=== PATIENT | male | born 1950 | race Hispanic/Latino ===

== ENCOUNTER 2017-11-28 15:30 | Emergency (ER) | payer OTHER, SELFPAY ==
--- NOTE | 2017-11-28 17:29 | EDPHYS ---
Physician Documentation [facility] Name: Home Matthew Age: 67 yrs Sex: Male : 1950 Arrival Date: 11/28/2017 Time: 15:32 Bed Treatment Private MD: Raoul Hall E; Bonnen, James ED Physician Quang Brower HPI: 11/28 17:26 This 67 yrs old Male presents to ER via Wheelchair with complaints of snw Parkinson's Tremors. 17:26 pt is concerned that his tremor was getting too severe. The battery of his stimulator snw is being replaced on . . Onset: The symptoms/episode began/occurred suddenly, just prior to arrival. Severity of symptoms: At their worst the symptoms were moderate severe in the emergency department the symptoms have improved moderately. The patient has experienced similar episodes in the past. The patient has not recently seen a physician. stimulator battery needs replacement. Historical: - Allergies: 15:53 NKDA; hb - Home Meds: 15:53 pramipexole Oral [Active]; hb - PMHx: 15:53 Parkinsons; Prostitis; hb - PSHx: 15:53 Brain stimulator; hb - Immunization history:: Adult Immunizations up to date. - Social history:: Smoking status: Patient/guardian denies using tobacco. - Ebola Screening: : No symptoms or risks identified at this time. ROS: 17:21 Constitutional: Negative for fever, chills, and weight loss, Eyes: Negative for injury, snw pain, redness, and discharge, ENT: Negative for injury, pain, and discharge, Neck: Negative for injury, pain, and swelling, Cardiovascular: Negative for chest pain, palpitations, and edema, Respiratory: Negative for shortness of breath, cough, wheezing, and pleuritic chest pain, Abdomen/GI: Negative for abdominal pain, nausea, vomiting, diarrhea, and constipation, Back: Negative for injury and pain, : Negative for injury, bleeding, discharge, and swelling, MS/Extremity: Negative for injury and deformity, Skin: Negative for injury, rash, and discoloration. 17:21 Neuro: Positive for tremor, pt states his brain stimulator battery is . It is being replaced on . per Dr. Del Castillo. Pt takes his Parkinson's meds but the tremor was severe earlier today. Pt now states he just wants to go home and he will see Dr. Del Castillo on .. Exam: 17:21 Constitutional: This is a well developed, well nourished patient who is awake, alert, snw and in no acute distress. Head/Face: Normocephalic, atraumatic. Eyes: Pupils equal round and reactive to light, extra-ocular motions intact. Lids and lashes normal. Conjunctiva and sclera are non-icteric and not injected. Cornea within normal limits. Periorbital areas with no swelling, redness, or edema. ENT: Nares patent. No nasal discharge, no septal abnormalities noted. Tympanic membranes are normal and external auditory canals are clear. Oropharynx with no redness, swelling, or masses, exudates, or evidence of obstruction, uvula midline. Mucous membranes moist. Neck: Trachea midline, no thyromegaly or masses palpated, and no cervical lymphadenopathy. Supple, full range of motion without nuchal rigidity, or vertebral point tenderness. No Meningismus. Chest/axilla: Normal chest wall appearance and motion. Nontender with no deformity. No lesions are appreciated. Cardiovascular: Regular rate and rhythm with a normal S1 and S2. No gallops, murmurs, or rubs. Normal PMI, no JVD. No pulse deficits. Respiratory: Lungs have equal breath sounds bilaterally, clear to auscultation and percussion. No rales, rhonchi or wheezes noted. No increased work of breathing, no retractions or nasal flaring. Abdomen/GI: Soft, non-tender, with normal bowel sounds. No distension or tympany. No guarding or rebound. No evidence of tenderness throughout. Back: No spinal tenderness. No costovertebral tenderness. Full range of motion. Skin: Warm, dry with normal turgor. Normal color with no rashes, no lesions, and no evidence of cellulitis. MS/ Extremity: Pulses equal, no cyanosis. Neurovascular intact. Full, normal range of motion. 17:21 Neuro: Orientation: is normal, Mentation: is normal, Memory: is normal, Cerebellar function: parkinsonian tremor. pt states it was significantly worse earlier today. . Vital Signs: 15:52 BP 168 / 88; Pulse 74; Resp 16; Temp 97.7; Pulse Ox 100% on R/A; Weight 78.02 kg; hb Height 5 ft. 7 in. (170.18 cm); Pain 8/10; 15:52 Body Mass Index 26.94 (78.02 kg, 170.18 cm) hb [facility]: 17:03 Patient medically screened. [facility] 17:28 Data reviewed: vital signs, nurses notes. Data interpreted: Pulse oximetry: on room air snw is 100 %. Interpretation: normal. Counseling: I had a detailed discussion with the patient and/or guardian regarding: the historical points, exam findings, and any diagnostic results supporting the discharge/admit diagnosis, the presence of at least one elevated blood pressure reading (>120/80) during this emergency department visit, the need for outpatient follow up, to return to the emergency department if symptoms worsen or persist or if there are any questions or concerns that arise at home. Special discussion: Based on the history and exam findings, there is no indication for further emergent testing or inpatient evaluation. I discussed with the patient/guardian the need to see the neurologist for further evaluation of the symptoms. I discussed with the patient/guardian the need to see the primary care provider for further evaluation of the symptoms. Dr. Del Castillo. Administered Medications: No medications were administered Disposition: 11/29 09:44 Co-signature as Attending Physician, Quang Brower MD I agree with the assessment and [facility] plan of care. Disposition: 11/28/17 17:28 Discharged to Home. Impression: Encounter for screening, unspecified. - Condition is Stable. - Medication Reconciliation Form, Thank You Letter, Antibiotic Education, Prescription Opioid Use form. - Follow up: Flex Del Castillo MD; When: 1 - 2 days; Reason: Recheck today's complaints, Continuance of care, Re-evaluation by your physician. Signatures: Quang Brower MD MD cha Therrien, Shelly, YOUTH SERVICES LIBRARIAN-C YOUTH SERVICES LIBRARIAN-Csnw Angelica Mcintyre, MARIA DEL ROSARIO RN ss Steph Reinoso RN RN Corrections: (The following items were deleted from the chart) 11/28 17:31 17:28 11/28/2017 17:28 Discharged to Home. Impression: Encounter for screening, ss unspecified. Condition is Stable. Forms are Medication Reconciliation Form, Thank You Letter, Antibiotic Education, Prescription Opioid Use. Follow up: Flex Del Castillo; When: 1 - 2 days; Reason: Recheck today's complaints, Continuance of care, Re-evaluation by your physician. snw
--- NOTE | 2017-11-28 17:29 | ER ---
Nurse's Notes [facility] Name: Home Matthew Age: 67 yrs Sex: Male : 1950 Arrival Date: 11/28/2017 Time: 15:32 Bed Treatment Private MD: Raoul Hall E; Flex Del Castillo Diagnosis: Encounter for screening, unspecified Presentation: 11/28 15:47 Presenting complaint: Patient states: Worsening tremors and bilateral upper extremity hb pain x 5 days. Hx Parkinson's. Brain stimulator battery is , surgery scheduled for . Transition of care: patient was not received from another setting of care. Onset of symptoms was November 28, 2017. Risk Assessment: Do you want to hurt yourself or someone else? Patient reports no desire to harm self or others. Initial Sepsis Screen: Does the patient meet any 2 criteria? No. Patient's initial sepsis screen is negative. Does the patient have a suspected source of infection? No. Patient's initial sepsis screen is negative. Care prior to arrival: None. 15:47 Method Of Arrival: Wheelchair hb 15:47 Acuity: TERESA 4 hb Historical: - Allergies: 15:53 NKDA; hb - Home Meds: 15:53 pramipexole Oral [Active]; hb - PMHx: 15:53 Parkinsons; Prostitis; hb - PSHx: 15:53 Brain stimulator; hb - Immunization history:: Adult Immunizations up to date. - Social history:: Smoking status: Patient/guardian denies using tobacco. - Ebola Screening: : No symptoms or risks identified at this time. Screenin:58 Abuse screen: Denies threats or abuse. Denies injuries from another. Nutritional sv screening: No deficits noted. Tuberculosis screening: Never had TB. Fall Risk No fall in past 12 months (0 pts). Secondary diagnosis (15 points) impaired mobility, parkinsons. No IV (0 pts). Ambulatory Aid- None/Bed Rest/Nurse Assist (0 pts). Gait- Impaired (20 pts.). Mental Status- Oriented to own ability (0 pts). Assessment: 16:45 General: Appears in no apparent distress. Behavior is calm, cooperative. General: Pt sv reports that his battery needs to be replaced on his stimulator which Dr. Del Castillo has scheduled for this . . Pain: Denies pain. Neuro: Level of Consciousness is awake, alert, obeys commands, Oriented to person, place, time, situation, tremors noted to bilateral upper extremities. More prominent to R upper extremity. . Respiratory: Airway is patent Respiratory effort is even, unlabored, Respiratory pattern is regular, symmetrical. Derm: Skin is intact, is healthy with good turgor, Skin is pink, warm \T\ dry. normal. 16:58 Reassessment: Betsy Duran NP at bedside. Pt is eager to leave because he reports sv that his tremors have improved much since arrival to ER and wants to just follow up as planned to replace battery. Decision to medical screen. Vital Signs: 15:52 BP 168 / 88; Pulse 74; Resp 16; Temp 97.7; Pulse Ox 100% on R/A; Weight 78.02 kg; hb Height 5 ft. 7 in. (170.18 cm); Pain 8/10; 15:52 Body Mass Index 26.94 (78.02 kg, 170.18 cm) hb ED Course: 15:32 Patient arrived in ED. sb2 15:32 Raoul Hall MD is Private Physician. sb2 15:33 Flex Del Castillo MD is Private Physician. sb2 15:52 Triage completed. hb 15:52 Arm band placed on left wrist. hb 16:50 Patient has correct armband on for positive identification. Call light in reach. sv 17:00 Nino West NP is PHCP. pm1 17:00 Quang Brower MD is Attending Physician. pm1 17:00 No provider procedures requiring assistance completed. Patient did not have IV access sv during this emergency room visit. 17:03 Betsy Duran FNP-C is PHCP. snw 17:03 Quang Brower MD is Attending Physician. snw 17:05 Angelica Mcintyre, MARIA DEL ROSARIO is Primary Nurse. ss 17:27 Flex Del Castillo MD is Referral Physician. snw Administered Medications: No medications were administered Outcome: 17:00 Medical screen evaluation completed per provider. Patient declined treatment. sv 17:00 Condition: good 17:00 Instructed on follow up and referral plans. Demonstrated understanding of follow-up care. 17:28 Discharge ordered by . snw 17:31 Patient left the ED. ss Signatures: Kelli Dejesus RN RN sv Betsy Duran, SKIN DIVING TEACHER-C SKIN DIVING TEACHER-Csnw Angelica Mcintyre, RN RN ss Nino West, DRY HEAT CABINET ATTENDANT DRY HEAT CABINET ATTENDANT pm1 Steph Reinoso RN RN Hoa Bryant sb2
[2017-11-28 18:48] VITALS: BP 168/88; TEMP 97.7; O2SAT 100
== END 2017-11-28 17:31 | disposition home or self-care (01) ==
LOC: ER 15:30
DX: G20 Parkinson's disease (principal)
CPT/HCPCS: 99281

== ENCOUNTER 2020-03-26 09:08 | Emergency (ER) | payer OTHER, SELFPAY ==
--- OUTSIDE RECORDS SUMMARY | 2020-03-26 09:32 | XMS REPORT ---
:1950 Author Organization [employer] Care Team Providers Name Role Phone Etta Josefina Provider Role Unavailable Allergies, Adverse Reactions, Alerts Substance Reaction Event Type N.K.D.A. Info Not Available Non Drug Allergy Problems Problem Type Condition Code Onset Dates Condition Statu s Assessment Urinary retention R33.9 Active Assessment Establishing care with new doctor, Z71.89 Active encounter for Medications Medication Code Code Instructions Start End Status Dosage System Date Date Vitamin D [facility] 20332829958 50 MCG (2000 Active 1 tab let UT) Orally Once a day Vitamin E [facility] 54291577312 100 UNIT Orally Active 1 capsule Once a day Carbidopa [facility] 17960856026 25 MG Orally Active 1 tab let Three times a day Pramipexole [facility] 54631154774 0.125 MG Orally Active 1 tablet Dihydrochloride Once a day Cephalexin ND 63769653597 250 MG Orally Active 1 c apsule every 6 hrs Results No Known Results Summary Purpose eClinical[employer] Submission
--- OUTSIDE RECORDS SUMMARY | 2020-03-26 09:32 | XMS REPORT | Continuity of Care Document ---
:1950 Author Organization [facility] t Address [address] [place] [address] Care Team Providers Name Role Phone Unavailable Unavailable Unavailable Problems Condition Condition Condition Status Onset Resolution Last Treating Co mments Source Name Details Category Date Date Treatment Clinician Date Urinary Urinary Diagnosis [facility] Establishi Establishi Diagnosis [facility] with new with new [facility] doctor, doctor, l encounter encounter Outp ati for for ent Clinics Allergies, Adverse Reactions, Alerts This patient has no known allergies or adverse reactions. Medications Ordered Filled Start Stop Current Ordering Indication Dosage Frequency Signature Comments Components Source Medication Medication Date Date Medication? Clinician (SIG) Name Name Vitamin D Vitamin D Yes Josefina [address] [facility] Vitamin E Vitamin E Yes Josefina [address] [facility] Carbidopa Carbidopa Yes Josefina [address] [facility] Pramipexole Pramipexole Yes Josefina [address] [facility] Dihydrochlo Dihydrochlo [facility] Cephalexin Cephalexin Yes Josefina [address] [facility] Procedures This patient has no known procedures. Encounters Start End Encounter Admission Attending Care Care Encounter Source Date/Time Date/Time Type Type Clinicians Facility Department ID 2020-01-07 2020-01-07 Outpatient [facility] [id number] [facility] 10:00:00 10:00:00 t Specialty/U [facility] - Specialty rology [facility]Urology Clinic l Clinic Outpati ent Clinics Results This patient has no known results.
[2020-03-26 10:31] LABS: Urine Blood TRACE (NEG); Urine Glucose NEGATIVE (NEG); Urine Protein 1+ (NEG); Urine Specific Gravity 1.025 (1.005-1.030)
--- NOTE | 2020-03-26 10:35 | ER ---
Nurse's Notes [facility] Name: Home Andrew Age: 69 yrs Sex: Male : 1950 Arrival Date: 03/26/2020 Time: 09:10 Bed 3 Private MD: Diagnosis: Urinary tract infection, site not specified Presentation: 03/26 09:20 Chief complaint: Patient states: pain to right leg X 3 days, states last time he had iw pain like this he had a urine infection, self caths at home and has had increase in frequency. Coronavirus screen: At this time, the client does not indicate any symptoms associated with coronavirus-19. Ebola Screen: Patient negative for fever greater than or equal to 101.5 degrees Fahrenheit, and additional compatible Ebola Virus Disease symptoms Patient denies exposure to infectious person. Patient denies travel to an Ebola-affected area in the 21 days before illness onset. No symptoms or risks identified at this time. Initial Sepsis Screen: Does the patient meet any 2 criteria? No. Patient's initial sepsis screen is negative. Does the patient have a suspected source of infection?. Risk Assessment: Do you want to hurt yourself or someone else? Patient reports no desire to harm self or others. Onset of symptoms was March 23, 2020. 09:20 Method Of Arrival: Wheelchair iw 09:20 Acuity: TERESA 3 iw Historical: - Allergies: 09:22 NKDA; iw - PMHx: 09:22 Parkinsons; Prostitis; iw - PSHx: 09:22 Brain stimulator; iw - Immunization history:: Adult Immunizations not up to date. - Social history:: Smoking status: Patient denies any tobacco usage or history of. Screenin:00 Abuse screen: Denies threats or abuse. Denies injuries from another. Nutritional jl7 screening: No deficits noted. Tuberculosis screening: No symptoms or risk factors identified. Fall Risk Ambulatory Aid- Crutches/Cane/Walker (15 pts). Mental Status- Total Cazares Fall Scale indicates No Risk (0-24 pts). Assessment: 10:00 General: Appears in no apparent distress. uncomfortable, Behavior is calm, cooperative, jl7 appropriate for age. Pain: Complains of pain in right leg and left leg Pain currently is 8 out of 10 on a pain scale. Neuro: Level of Consciousness is awake, alert, obeys commands. Cardiovascular: Patient's skin is warm and dry. Respiratory: Airway is patent Respiratory effort is even, unlabored, Respiratory pattern is regular, symmetrical. Derm: Skin is pink, warm \T\ dry. 11:00 Reassessment: Patient appears in no apparent distress at this time. No changes from jl7 previously documented assessment. Patient and/or family updated on plan of care and expected duration. Pain level reassessed. Patient is alert, oriented x 3, equal unlabored respirations, skin warm/dry/pink. Vital Signs: 09:20 BP 143 / 71; Pulse 95; Resp 16 S; Temp 98.7; Pulse Ox 97% on R/A; Weight 78.93 kg; iw Height 5 ft. 6 in. (167.64 cm); Pain 8/10; 11:15 BP 135 / 72; Pulse 80; Resp 17; Pulse Ox 96% ; jl7 09:20 Body Mass Index 28.08 (78.93 kg, 167.64 cm) iw ED Course: 09:10 Patient arrived in ED. as 09:22 Triage completed. iw 09:22 Arm band placed on. iw 09:37 Blanca Briceño FNP-C is PHCP. kb 09:37 Hermann Napoles MD is Attending Physician. kb 09:57 Luis Tompkins, MARIA DEL ROSARIO is Primary Nurse. jl7 10:00 Patient has correct armband on for positive identification. Placed in gown. Bed in low jl7 position. Call light in reach. Side rails up X 1. Pulse ox on. NIBP on. Warm blanket given. 11:32 No provider procedures requiring assistance completed. Patient did not have IV access jl7 during this emergency room visit. Administered Medications: 11:08 Drug: Rocephin (cefTRIAXone) 1 grams Route: IM; Site: left vastus lateralis; tw2 11:31 Follow up: Response: No adverse reaction jl7 Outcome: 10:35 Discharge ordered by . kb 11:32 Discharged to home ambulatory, with family. jl7 11:32 Condition: stable 11:32 Discharge instructions given to patient, family, Instructed on discharge instructions, follow up and referral plans. medication usage, Demonstrated understanding of instructions, follow-up care, medications, Prescriptions given X 1. 11:33 Patient left the ED. jl7 Addendum: 03/29/2020 13:59 Addendum: Culture Results: Positive urine culture. Bacteria is resistant to, has s v intermediate sensitivity, or is not tested against prescribed antibiotics. Report given to KEVIN for further evaluation and then to brush clearing laborer for follow up with patient. Phone call Attempt #1 Marely informed pt over the phone in [place] Prescription called-in to pharmacy of choice. Ekaterina Portillo. Signatures: Blanca Briceño, DRILLING ENGINEER-C DRILLING ENGINEER-Kelli Dolan, RN RN Katharina Perez Irene, RN RN iw Lilly Castillo, RN RN tw2 Luis Tompkins, RN RN jl7
--- NOTE | 2020-03-26 10:36 | EDPHYS ---
Physician Documentation [facility] Name: Home Andrew Age: 69 yrs Sex: Male : 1950 Arrival Date: 03/26/2020 Time: 09:10 Bed 3 Private MD: ED Physician Hermann Napoles HPI: 03/26 10:29 This 69 yrs old Male presents to ER via Wheelchair with complaints of Leg Pain.kb 10:29 The patient presents with urinary symptoms, urinary frequency. Onset: The kb symptoms/episode began/occurred yesterday. Modifying factors: The symptoms are alleviated by nothing, the symptoms are aggravated by nothing. Associated signs and symptoms: The patient has no apparent associated signs or symptoms. Severity of symptoms: At their worst the symptoms were moderate, in the emergency department the symptoms are unchanged. The patient has experienced similar episodes in the past. The patient has not recently seen a physician. Pt reports urinary frequency and bilateral leg achiness. States he normally has the leg pain when he has a UTI. . Historical: - Allergies: 09:22 NKDA; iw - PMHx: 09:22 Parkinsons; Prostitis; iw - PSHx: 09:22 Brain stimulator; iw - Immunization history:: Adult Immunizations not up to date. - Social history:: Smoking status: Patient denies any tobacco usage or history of. ROS: 10:28 Constitutional: Negative for fever, chills, and weight loss, Cardiovascular: Negative kb for chest pain, palpitations, and edema, Respiratory: Negative for shortness of breath, cough, wheezing, and pleuritic chest pain, Abdomen/GI: Negative for abdominal pain, nausea, vomiting, diarrhea, and constipation, Back: Negative for injury and pain, Skin: Negative for injury, rash, and discoloration, Neuro: Negative for headache, weakness, numbness, tingling, and seizure. 10:28 : Positive for urinary symptoms, urinary frequency. 10:28 MS/extremity: Positive for bilateral leg pain. Exam: 10:29 Constitutional: This is a well developed, well nourished patient who is awake, alert, kb and in no acute distress. Head/Face: Normocephalic, atraumatic. Chest/axilla: Normal chest wall appearance and motion. Nontender with no deformity. No lesions are appreciated. Cardiovascular: Regular rate and rhythm with a normal S1 and S2. No gallops, murmurs, or rubs. Normal PMI, no JVD. No pulse deficits. Respiratory: Lungs have equal breath sounds bilaterally, clear to auscultation and percussion. No rales, rhonchi or wheezes noted. No increased work of breathing, no retractions or nasal flaring. Abdomen/GI: Soft, non-tender, with normal bowel sounds. No distension or tympany. No guarding or rebound. No evidence of tenderness throughout. Skin: Warm, dry with normal turgor. Normal color with no rashes, no lesions, and no evidence of cellulitis. MS/ Extremity: Pulses equal, no cyanosis. Neurovascular intact. Full, normal range of motion. Neuro: Awake and alert, GCS 15, oriented to person, place, time, and situation. Cranial nerves II-XII grossly intact. Motor strength 5/5 in all extremities. Sensory grossly intact. Cerebellar exam normal. Normal gait. Vital Signs: 09:20 BP 143 / 71; Pulse 95; Resp 16 S; Temp 98.7; Pulse Ox 97% on R/A; Weight 78.93 kg; iw Height 5 ft. 6 in. (167.64 cm); Pain 8/10; 11:15 BP 135 / 72; Pulse 80; Resp 17; Pulse Ox 96% ; jl7 09:20 Body Mass Index 28.08 (78.93 kg, 167.64 cm) iw MDM: 09:50 Patient medically screened. kb 10:29 Data reviewed: vital signs, nurses notes. Data interpreted: Pulse oximetry: on room air kb is 97 %. Interpretation: normal. Counseling: I had a detailed discussion with the patient and/or guardian regarding: the historical points, exam findings, and any diagnostic results supporting the discharge/admit diagnosis, lab results, the need for outpatient follow up, a family practitioner, to return to the emergency department if symptoms worsen or persist or if there are any questions or concerns that arise at home. 03/26 10:25 Order name: Urine Microscopic Only; Complete Time: 11:24 kb 03/26 10:29 Order name: Urine Dipstick--Ancillary (enter results); Complete Time: 10:32 bd 03/26 10:02 Order name: Urine Dipstick-Ancillary (obtain specimen); Complete Time: 10:19 kb 03/26 10:05 Order name: Straight Cath; Complete Time: 10:19 kb 03/26 11:24 Order name: Urine Culture; Complete Time: 13:35 EDMS Administered Medications: 11:08 Drug: Rocephin (cefTRIAXone) 1 grams Route: IM; Site: left vastus lateralis; tw2 11:31 Follow up: Response: No adverse reaction jl7 Disposition: 18:08 Co-signature as Attending Physician, Hermann Napoles MD I agree with the assessment and kdr plan of care. Disposition: 03/26/20 10:35 Discharged to Home. Impression: Urinary tract infection, site not specified. - Condition is Stable. - Discharge Instructions: Urinary Tract Infection, Adult, [id number]. - Prescriptions for Augmentin 875- 125 mg Oral Tablet - take 1 tablet by ORAL route every 12 hours for 10 days; 20 tablet. - Medication Reconciliation Form, Thank You Letter, Antibiotic Education, Prescription Opioid Use form. - Follow up: Emergency Department; When: As needed; Reason: Worsening of condition. Follow up: Private Physician; When: 2 - 3 days; Reason: Recheck today's complaints, Continuance of care, Re-evaluation by your physician. Signatures: Dispatcher [employer] EDMS Blanca Briceño, ODALYS-C BOOK TRIMMER-CkHermann Dailey MD MD kdr Tali Valencia, RN RN Quang Gasca PA PA cp Wise, Tara, RN RN tw2 Luis Tompkins RN RN jl7 Corrections: (The following items were deleted from the chart) 11:33 10:35 03/26/2020 10:35 Discharged to Home. Impression: Urinary tract infection, site jl7 not specified. Condition is Stable. Forms are Medication Reconciliation Form, Thank You Letter, Antibiotic Education, Prescription Opioid Use. Follow up: Emergency Department; When: As needed; Reason: Worsening of condition. Follow up: Private Physician; When: 2 - 3 days; Reason: Recheck today's complaints, Continuance of care, Re-evaluation by your physician. kb
[2020-03-26] MEDS ORDERED: CEFTRIAXONE 1000 MG/VIAL ONE (10:52)
[2020-03-26] MEDS ORDERED: WATER FOR INJ,STERILE 10 ML ONE (10:52)
[2020-03-26 11:21] LABS: Urine Bacteria LOADED /HPF (NONE SEEN); Urine RBC NONE SEEN /HPF (NONE SEEN)
[2020-03-26 11:22] LABS: Urine Culture Reflex Order REFLEXED; Urine Urothelial Cells <5 /HPF (NONE SEEN)
[2020-03-26 13:58] VITALS: TEMP 98.7
[2020-03-26 14:00] VITALS: BP 135/72; O2SAT 96
== END 2020-03-26 11:33 | disposition home or self-care (01) ==
LOC: ER 09:08
DX: N39.0 Urinary tract infection, site not specified (principal); G20 Parkinson's disease
CPT/HCPCS: 81003; 81015; 87077; 87086; 87088; 87186; 96372; 99283